=== PATIENT | female | born 1980 | race Caucasian/White ===

== ENCOUNTER 2016-12-21 16:38 | Emergency (ER) | payer MEDICAID ==
[~2016-12-21] VITALS: Ht 157.5 cm; Wt 78.2 kg
[2016-12-21 17:45] VITALS: BP 129/82
== END 2016-12-21 17:45 | disposition home or self-care (01) ==
LOC: ED 16:38
DX: J03.90 Acute tonsillitis, unspecified (principal); Z88.6 Allergy status to analgesic agent

== ENCOUNTER 2017-01-25 11:15 | Emergency (ER) | payer MEDICAID ==
[2017-01-25 11:36] VITALS: BP 127/73
== END 2017-01-25 11:56 | disposition home or self-care (01) ==
LOC: ED 11:15
DX: H10.31 Unspecified acute conjunctivitis, right eye (principal)

== ENCOUNTER 2017-05-27 16:21 | Emergency (ER) | payer MEDICAID ==
[~2017-05-27] VITALS: Ht 157.5 cm; Wt 69.2 kg
[2017-05-27 17:18] VITALS: BP 133/78
== END 2017-05-27 17:18 | disposition home or self-care (01) ==
LOC: ED 16:21
DX: J40 Bronchitis, not specified as acute or chronic (principal); H92.09 Otalgia, unspecified ear; Z88.5 Allergy status to narcotic agent; Z79.899 Other long term (current) drug therapy